=== PATIENT | female | born 1980 | race Hispanic/Latino ===

== ENCOUNTER 2018-03-02 18:58 | Emergency (ER) | payer OTHER ==
[2018-03-02 18:58] VITALS: BMI 33.1
[2018-03-02 19:25] VITALS: RESP 20
[2018-03-02] MEDS ORDERED: Albuterol 0.083% Inhal Sol (2.5 mg/3 mL) UD IH STA (19:57)
--- NOTE | 2018-03-02 20:14 | C.PDOC ---
Addendum entered and electronically signed by Kathi Quintero PA 03/03/18 19:24: Addendum Addendum: 03/03/18 19:23 Pt provided incorrect phone numbers Will sent certify letter with ronaldo, discrepancy to provided address IMPRESSION: Subtle patchy right middle lobe opacity may reflect pneumonia. Study marked for PA review. Original Note: History Of Present Illness 37 yo female w/o significant PMHx, smokier, comes in accompanied by children ( also patients of ED with cold- like sx) for evaluation of colds sx for 10-12 days and associated with nasal congestion, post-nasal drip, productive cough with clear sputum. Pt reports, was seen by PMD 6 days ago when was started on Rx: Augmentin without improvement in sx. Pt reports, " cough worsen, feel like some liquid in my lungs", (+) low grade fever. Pt denies high fever, chills, headache, dizziness, drooling, neck pain, SOB, dyspnea, diaphoresis, palpitation, abd. pain, N/V, change in appetite, back pain, UTI sx. Ambulate to Ed for evaluation, not in resp. distress. Time Seen by Provider: 03/02/18 19:30 Chief Complaint (Nursing): Cough, Cold, Congestion History Per: Patient Past Medical History Reviewed: Historical Data, Nursing Documentation, Vital Signs Vital Signs: Last Vital Signs Temp 99.7 F H 03/02/18 19:21 Pulse 83 03/02/18 19:21 Resp 20 03/02/18 19:21 BP 109/75 03/02/18 19:21 Pulse Ox 97 03/02/18 19:21 - Medical History PMH: No Chronic Diseases - [facility] Procedures EXTRACTION OF POC, LOW CERVICAL, OPEN APPROACH (12/31/15) Family History: States: Unknown Family Hx - Social History Hx Tobacco Use: Yes Hx Alcohol Use: No Hx Substance Use: No - Immunization History Hx Tetanus Toxoid Vaccination: No Hx Influenza Vaccination: No Hx Pneumococcal Vaccination: No Review Of Systems Except As Marked, All Systems Reviewed And Found Negative. Constitutional: Positive for: Fever (low grade). Negative for: Chills Eyes: Negative for: Vision Change ENT: Positive for: Nose Discharge, Nose Congestion. Negative for: Ear Discharge, Throat Pain, Throat Swelling Cardiovascular: Negative for: Chest Pain, Palpitations, Edema, Light Headedness Respiratory: Positive for: Cough, Sputum. Negative for: Shortness of Breath, Wheezing Gastrointestinal: Positive for: Diarrhea (watery). Negative for: Nausea, Vomiting, Abdominal Pain Genitourinary: Negative for: Dysuria Musculoskeletal: Negative for: Neck Pain Skin: Negative for: Rash Neurological: Negative for: Weakness, Numbness, Altered Mental Status, Headache, Dizziness Physical Exam - Physical Exam Appears: Well, Non-toxic, No Acute Distress Skin: Normal Color, Warm, Dry, No Rash Head: Normacephalic Eye(s): bilateral: PERRL Ear(s): Bilateral: Normal Nose: No Flaring, Discharge (B/L nasal congestion with scant clear rhinorrhea ) Oral Mucosa: Moist, No Drooling Tongue: Normal Appearing Lips: Normal Appearing Throat: No Erythema, No Drooling Neck: Trachea Midline, Supple Cardiovascular: Rhythm Regular Respiratory: No Decreased Breath Sounds, No Accessory Muscle Use, No Rales, No Rhonchi, No Stridor, Wheezing (scattered left base exp wheezing) Gastrointestinal/Abdominal: Soft, No Tenderness, No Distention, No Guarding Extremity: Normal ROM, No Pedal Edema, No Deformity, No Swelling Neurological/Psych: Oriented x3, Normal Speech ED Course And Treatment O2 Sat by Pulse Oximetry: 97 Pulse Ox Interpretation: Normal - Radiology CXR: Interpreted by Me, Viewed By Me CXR Interpretation: Yes: No Acute Disease Progress Note: On re-eval, pt is afebrile, hemodynamicaly stable. Non-toxic. PulsEOx 97% RA. neck: Supple, (-) JVD, (-) carotid bruits B/L. Lungs: CTA B/L, BS equal B/L. CVS: (+)S1S2, reg, (-) murmur. Abd: benign, (-) guarding, (-) rebound. Back: (-) CVA tenderness. Neurologicaly intact. CXR, UA review and appears without acute abnormalities. Pt has clinical findings c/w. Pt advised. Ref. to f/u with PMD in 2-3 days for re-eavl. return to ED if any worsening or new changes. Disposition Counseled Patient/Family Regarding: Studies Performed, Diagnosis, Need For Followup, Rx Given - Disposition Referrals: Titus Phan MD [Medical Doctor] - Disposition: HOME/ ROUTINE Disposition Time: 20:17 Condition: STABLE Additional Instructions: Encourage fluids take medication ZS prescribed Complete antibiotics as initiated Follow up with PMD in 2-3 days for re-evaluation. Return to ED if any worsening or new changes. Prescriptions: Albuterol HFA [Ventolin HFA 90 mcg/actuation (8 g)] 1 puff IH Q6 #1 inhaler Prednisone [Deltasone] 40 mg PO DAILY #6 tablet Promethazine/Codeine [Phenergan/Codeine Oral Syrup] 10 ml PO BID #90 ml Instructions: Asthma in Adults, Acute Bronchitis Forms: [facility] (Polish) - Clinical Impression Clinical Impression: Bronchitis, Asthma
[2018-03-02] MEDS ORDERED: Albuterol-Ipratrop 3 mg / 0.5 (3 ml) UD ONE (20:20)
[2018-03-02 20:41] LABS: SQUAMOUS EPITHIAL < 1 /hpf (0-5); URINE BILIRUBIN NEGATIVE (NEGATIVE); URINE BLOOD NEGATIVE (NEGATIVE); URINE CLARITY Clear (Clear); URINE COLOR Straw (YELLOW); URINE GLUCOSE (UA) NORMAL (Normal); URINE LEUKOCYTE ESTERASE NEG Leu/uL (Negative); URINE PROTEIN NEGATIVE (NEGATIVE); URINE UROBILINOGEN NORMAL mg/dL (0.2-1.0)
[2018-03-02 21:24] VITALS: BP 112/80; PULSE 89; TEMP 98.8; O2SAT 99
--- NOTE | 2018-03-03 10:29 | RAD ---
HISTORY: Cough COMPARISON: None available. TECHNIQUE: Chest PA and lateral FINDINGS: LUNGS: Subtle patchy right middle lobe opacity may reflect pneumonia. Please note that chest x-ray has limited sensitivity for the detection of pulmonary masses. PLEURA: No significant pleural effusion identified. No definite pneumothorax . CARDIOVASCULAR: The cardiomediastinal silhouette appears within normal limits of size. OSSEOUS STRUCTURES: No acute osseous abnormality identified. VISUALIZED UPPER ABDOMEN: Unremarkable. OTHER FINDINGS: None. IMPRESSION: Subtle patchy right middle lobe opacity may reflect pneumonia. Study marked for PA review.
== END 2018-03-02 21:25 | disposition home or self-care (01) ==
LOC: C.ER 18:58
DX: J45.909 Unspecified asthma, uncomplicated (principal); F17.210 Nicotine dependence, cigarettes, uncomplicated